=== PATIENT | female | born 1960 | race Caucasian/White ===

== ENCOUNTER 2019-08-14 15:31 | Emergency (ER) | payer OTHER, MEDICAID ==
[~2019-08-14] VITALS: Ht 167.6 cm; Wt 82.1 kg
[2019-08-14 15:38] VITALS: Ht 167.6 cm; Wt 82.1 kg
[2019-08-14 16:50] VITALS: BP 153/93
== END 2019-08-14 16:50 | disposition home or self-care (01) ==
LOC: ED 15:31
DX: R22.43 Localized swelling, mass and lump, lower limb, bilateral (principal); G89.29 Other chronic pain; J44.9 Chronic obstructive pulmonary disease, unspecified; I50.9 Heart failure, unspecified; I10 Essential (primary) hypertension; Z76.0 Encounter for issue of repeat prescription